=== PATIENT | female | born 1995 | race African-American/Black ===

== ENCOUNTER 2016-10-20 21:45 | Emergency (ER) | payer MEDICAID ==
[~2016-10-20] VITALS: Ht 172.7 cm; Wt 62.1 kg
[2016-10-20 21:58] VITALS: BP 112/71
[2016-10-20] MEDS ORDERED: NKM (22:02)
[2016-10-20 23:00] VITALS: BP 114/74
--- NOTE | 2016-10-20 23:00 | Emergency Room Report ---
History of Present Illness General Chief Complaint: Pain Source: Patient Present Illness HPI Is a 20-year-old female presents with swelling to the right chin and mouth area. Onset for 2 days. No fever or chills. Worse with eating. No other complaint. No drooling Allergies: Coded Allergies: No Known Allergies (Unverified , 10/20/16) Patient History Past Medical History: see triage record, old chart reviewed Past Surgical History: none Pertinent Family History: none Social History: Denies: smoking Last Menstrual Period: 3 weeks ago Now: No Immunizations: other Reviewed Nursing Documentation: PMH: Agreed, PSxH: Agreed Nursing Documentation-PMH Past Medical History: No Stated History Review of Systems Eye: Denies: eye pain, blurred vision ENT: Denies: ear pain, nose congestion, throat swelling Respiratory: Denies: cough, shortness of breath Cardiovascular: Denies: chest pain, palpitations Gastrointestinal: Denies: abdominal pain, diarrhea, nausea, vomiting Musculoskeletal: Denies: back pain, joint pain Skin: Denies: rash Neurological: Denies: headache, numbness Endocrine: Denies: increased thirst, increased urine Hematologic/Lymphatic: Denies: easy bruising All Other Systems: negative except mentioned in HPI Physical Exam Vital Signs Date Time Temp Pulse Resp B/P (MAP) Pulse Ox O2 Delivery O2 Flow Rate FiO2 10/20/16 21:56 97.7 79 16 112/71 100 Room Air vitals normal Sp02 EP Interpretation: reviewed, normal General Appearance: well appearing, no apparent distress, alert Head: normocephalic, atraumatic Eyes: bilateral eye PERRL, bilateral eye EOMI ENT: hearing grossly normal, normal pharynx, other - small salivary stone at tip of tongue on right Neck: full range of motion, supple, no meningismus Respiratory: chest non-tender, lungs clear, normal breath sounds Cardiovascular #1: regular rate, rhythm, no murmur Gastrointestinal: normal bowel sounds, non tender, no mass, no organomegaly, no bruit, non-distended Musculoskeletal: back normal, gait/station normal, normal range of motion Psychiatric: mood/affect normal Skin: warm/dry Procedures Additional Procedure Procedure Narrative Procedure: Salivary gland stone extraction Indication: Salivary gland stone. Description: I "milked" the salivary duct. I didn't see the stone at the tip of the duct already. Using a small forcep it pulled the stone out without a problem. Patient felt better. Patient tolerated procedure without issue. Medical Decision Making Diagnostic Impression: Primary Impression: Salivary duct calculus ER Course Patient with a salivary duct stone. No evidence of infection. We'll discharge home. Last Vital Signs Date Time Temp Pulse Resp B/P (MAP) Pulse Ox O2 Delivery O2 Flow Rate FiO2 10/20/16 21:58 97.7 16 112/71 100 Room Air 10/20/16 21:56 79 Status: improved Disposition: HOME, SELF-CARE Condition: Stable Additional Instructions: Suction on lemon drops. Follow up with your doctor in 7 days. Return if worse. THIERRY CARRANZA M.D. Oct 20, 2016 23:00
[2016-10-20 23:12] VITALS: BP 114/74
== END 2016-10-20 23:15 | disposition home or self-care (01) ==
LOC: EMR 21:57
DX: K11.5 Sialolithiasis (principal)
CPT/HCPCS: 99283